=== PATIENT | female | born 2000 | race Caucasian/White ===

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

== ENCOUNTER 2023-11-25 12:04 | Emergency (ER) | payer SELFPAY ==
[2023-11-25 13:07] LABS: BASOPHILS PERCENT AUTO 0.4 % (0.0-1.0); EOSINOPHILS ABSOLUTE AUTO 0.1 K/mm3 (0.0-0.4); EOSINOPHILS PERCENT AUTO 0.7 % (0.0-6.0); HEMOGLOBIN 12.9 gm/dl (12.0-16.0); IMMATURE GRAN ABSOLUTE AUTO 0.02 K/mm3 (0.00-0.05); IMMATURE GRAN PERCENT AUTO 0.3 % (0.0-0.4); LYMPHOCYTES ABSOLUTE AUTO 1.8 K/mm3 (1.0-4.8); MEAN CORPUSCULAR HEMOGLOBIN 28.2 pg (28.0-32.0); MEAN CORPUSCULAR HGB CONC 33.1 g/dl (32.0-36.0); MEAN CORPUSCULAR VOLUME 85.3 fl (83.0-99.0); MEAN PLATELET VOLUME 9.4 fl (9.4-12.3); MONOCYTES ABSOLUTE AUTO 0.4 K/mm3 (0.0-0.8); MONOCYTES PERCENT AUTO 5.7 % (0.0-8.0); NEUTROPHILS ABSOLUTE AUTO 4.7 K/mm3 (1.8-7.7); NEUTROPHILS PERCENT AUTO 66.9 % (41.0-71.0); PLATELET COUNT,PLT 218 K/mm3 (150-400); RED BLOOD CELL COUNT 4.57 M/mm3 (4.10-5.30); WHITE BLOOD CELL COUNT,WBC 6.97 K/mm3 (3.9-11.3)
[2023-11-25] MEDS: Sodium Chloride 0.9% 10 ML Syringe FLUSH PRN (13:15)
[2023-11-25] MEDS: Sodium Chloride 0.9% 1,000 ML IV ONE (13:20)
[2023-11-25 13:29] LABS: ALBUMIN 3.7 g/dl (3.4-5.0); ANION GAP 12.1 (5-15); BILIRUBIN TOTAL 0.4 mg/dL (0.2-1.0); BUN/CREATININE RATIO 7.5 (14-18); CALCIUM 8.9 mg/dL (8.5-10.1); CREATININE 0.8 mg/dL (0.55-1.02); EST CRCL DRUG DOSING (CG) 103.26 mL/min; POTASSIUM,K 4.1 mEq/L (3.5-5.1); PROTEIN TOTAL,TP 7.3 g/dl (6.4-8.2)
[2023-11-25] MEDS: lamoTRIgine 100 MG Tab PO ONE (16:12)
[2023-11-25 21:20] VITALS: BP 133/97; PULSE 96
== END 2023-11-25 16:20 | disposition home or self-care (01) ==
LOC: JD.ED 12:04
DX: R56.9 Unspecified convulsions (principal); Z91.040 Latex allergy status; Z91.048 Other nonmedicinal substance allergy status; Z79.899 Other long term (current) drug therapy; Z91.148 Patient's other noncompliance with medication regimen for other reason
CPT/HCPCS: 36415; 70450; 80053; 83735; 84703; 85025; 93005; 99284; A9270; J3490; J7030; 93010; 99283

== ENCOUNTER 2024-02-06 23:27 | Emergency (ER) | payer MEDICAID ==
[2024-02-07 01:01] LABS: BASOPHILS PERCENT AUTO 0.6 % (0.0-1.0); EOSINOPHILS ABSOLUTE AUTO 0.1 K/mm3 (0.0-0.4); EOSINOPHILS PERCENT AUTO 1.5 % (0.0-6.0); HEMATOCRIT 39.6 % (37.0-47.0); HEMOGLOBIN 13.4 gm/dl (12.0-16.0); IMMATURE GRAN ABSOLUTE AUTO 0.01 K/mm3 (0.00-0.05); IMMATURE GRAN PERCENT AUTO 0.1 % (0.0-0.4); LYMPHOCYTES ABSOLUTE AUTO 2.7 K/mm3 (1.0-4.8); LYMPHOCYTES PERCENT AUTO 39.9 % (24.0-44.0); MEAN CORPUSCULAR HEMOGLOBIN 28.2 pg (28.0-32.0); MEAN CORPUSCULAR HGB CONC 33.8 g/dl (32.0-36.0); MEAN CORPUSCULAR VOLUME 83.2 fl (83.0-99.0); MONOCYTES ABSOLUTE AUTO 0.4 K/mm3 (0.0-0.8); MONOCYTES PERCENT AUTO 6.1 % (0.0-8.0); NEUTROPHILS ABSOLUTE AUTO 3.5 K/mm3 (1.8-7.7); NEUTROPHILS PERCENT AUTO 51.8 % (41.0-71.0); PLATELET COUNT,PLT 233 K/mm3 (150-400); RED BLOOD CELL COUNT 4.76 M/mm3 (4.10-5.30); WHITE BLOOD CELL COUNT,WBC 6.69 K/mm3 (3.9-11.3)
[2024-02-07] MEDS: Sodium Chloride 0.9% 1,000 ML IV ONE (01:02)
[2024-02-07] MEDS: Metoclopramide 10 MG/2 ML SDV IVPUSH ONE (01:02)
[2024-02-07] MEDS: Ketorolac 15 MG/ML SDV IVPUSH ONE (01:03)
[2024-02-07] MEDS: diphenhydrAMINE 50 MG/ML SDV IVPUSH ONE (01:04)
[2024-02-07] MEDS: Sodium Chloride 0.9% 10 ML Syringe FLUSH PRN (01:04)
[2024-02-07 01:24] LABS: ALBUMIN 3.6 g/dl (3.4-5.0); ANION GAP 10.6 (5-15); BILIRUBIN TOTAL 0.2 mg/dL (0.2-1.0); BUN/CREATININE RATIO 15.6 (14-18); CALCIUM 9.1 mg/dL (8.5-10.1); CREATININE 0.9 mg/dL (0.55-1.02); EST CRCL DRUG DOSING (CG) 91.79 mL/min; POTASSIUM,K 3.6 mEq/L (3.5-5.1); PROTEIN TOTAL,TP 7.2 g/dl (6.4-8.2)
[2024-02-07 02:27] VITALS: BP 148/96; PULSE 87
== END 2024-02-07 02:25 | disposition home or self-care (01) ==
LOC: JD.ED 23:27
DX: R51.9 Headache, unspecified (principal); Z86.69 Personal history of other diseases of the nervous system and sense organs; E66.9 Obesity, unspecified; Z86.16 Personal history of COVID-19; Z91.040 Latex allergy status; Z91.048 Other nonmedicinal substance allergy status; Z79.899 Other long term (current) drug therapy; Z68.42 Body mass index [BMI] 45.0-49.9, adult
CPT/HCPCS: 36415; 80053; 84703; 85025; 96374; 96375; 99283-25; J1200; J1885; J2765; J3490; J7030

== ENCOUNTER 2024-02-23 22:11 | Emergency (ER) | payer MEDICAID ==
[2024-02-23] MEDS: Metoclopramide 10 MG/2 ML SDV IVPUSH ONE (22:58)
[2024-02-23] MEDS: Ketorolac 30 MG/ML SDV IVPUSH ONE (22:58)
[2024-02-23] MEDS: diphenhydrAMINE 50 MG/ML SDV IVPUSH ONE (22:58)
[2024-02-23] MEDS: Sodium Chloride 0.9% 1,000 ML IV ONE (22:58)
[2024-02-24 00:04] VITALS: BP 135/82; PULSE 85
== END 2024-02-24 | disposition home or self-care (01) ==
LOC: JD.ED 22:11
DX: U07.1 COVID-19 (principal); E66.9 Obesity, unspecified; Z86.16 Personal history of COVID-19; Z79.899 Other long term (current) drug therapy; Z91.048 Other nonmedicinal substance allergy status; Z91.040 Latex allergy status; Z68.41 Body mass index [BMI] 40.0-44.9, adult
CPT/HCPCS: 87428; 96374; 96375; 99283; J1200; J1885; J2765; J7030

== ENCOUNTER 2024-08-09 00:28 | Emergency (ER) | payer MEDICAID ==
[2024-08-09 00:45] VITALS: PULSE 81
[2024-08-09] MEDS ORDERED: Sodium Chloride 0.9% 10 ML Syringe FLUSH PRN (01:06)
[2024-08-09] MEDS: diphenhydrAMINE 50 MG/ML SDV IVPUSH ONE (01:21)
[2024-08-09] MEDS: Metoclopramide 10 MG/2 ML SDV IVPUSH ONE (01:21)
[2024-08-09] MEDS: Ketorolac 30 MG/ML SDV IVPUSH ONE (01:21)
[2024-08-09 01:59] VITALS: BP 132/91
== END 2024-08-09 01:55 | disposition home or self-care (01) ==
LOC: JD.ED 00:28
DX: G43.909 Migraine, unspecified, not intractable, without status migrainosus (principal); E66.9 Obesity, unspecified; Z68.41 Body mass index [BMI] 40.0-44.9, adult; Z86.16 Personal history of COVID-19; Z91.040 Latex allergy status; Z91.048 Other nonmedicinal substance allergy status; Z79.899 Other long term (current) drug therapy
CPT/HCPCS: 96374; 96375; 99283; J1200; J1885; J2765